=== PATIENT | female | born 1955 | race Caucasian/White ===

== ENCOUNTER → 2017-01-20 | Outpatient (CLI) | payer MEDICAID | LOC: BRMIMAGING 10:57 | PROVIDERS: ATTEND Registered Nurse | DX: M54.2 Cervicalgia (principal); M25.551 Pain in right hip; M50.30 Other cervical disc degeneration, unspecified cervical region; M25.78 Osteophyte, vertebrae; G89.29 Other chronic pain; Q65.89 Other specified congenital deformities of hip | CPT/HCPCS: 72050-PO; 73502-PO ==